=== PATIENT | female | born 1965 ===

== ENCOUNTER 2021-05-15 12:15 | Emergency (ER) | payer BC, OTHER | END 2021-05-15 15:30 | disposition home or self-care (01) | LOC: LL.ED 12:15 | DX: S01.01XA Laceration without foreign body of scalp, initial encounter (principal); Z72.0 Tobacco use; Y04.0XXA Assault by unarmed brawl or fight, initial encounter | CPT/HCPCS: 12002; 70450; 71111; 72170; 73590-RT; 99285-25 ==